=== PATIENT | male | born 1940 | race Caucasian/White ===

== ENCOUNTER 2016-04-09 08:13 | Outpatient (CLI) ==
[2012-10-28 08:55] VITALS: BMI 34.4
[2016-04-09 08:54] LABS: BASOPHILS # (AUTO) 0.1 K/uL (0-0.2); BASOPHILS % (AUTO) 0.7 % (0.0-3.0); EOSINOPHILS # (AUTO) 0.2 K/ul (0.0-0.7); EOSINOPHILS % (AUTO) 2.4 % (0.0-7.0); HEMATOCRIT 46.8 % (42.0-52.0); HEMOGLOBIN 15.1 g/dl (14.0-18.0); IMMATURE GRANULOCYTE % (AUTO) 0.1 % (0.0-5.0); LYMPHOCYTES # (AUTO) 1.8 K/uL (0.60-3.4); LYMPHOCYTES % (AUTO) 26.4 (10.0-50.0); MEAN CORPUSCULAR HEMOGLOBIN 31.6 pg (27.0-31.0); MEAN CORPUSCULAR HGB CONC 32.3 (31.8-35.4); MEAN CORPUSCULAR VOLUME 97.9 fl (80.0-94.0); MONOCYTES # (AUTO) 0.6 K/uL (0.4-2.0); MONOCYTES % (AUTO) 9.2 (0-10); NEUTROPHILS # (AUTO) 4.3 K/ul (2.0-6.9); NEUTROPHILS % (AUTO) 61.2; PLATELET COUNT 224 10^3/uL (140-440); RED BLOOD COUNT 4.78 10^6/ul (4.70-6.10); WHITE BLOOD COUNT 6.97 K/ul (4.2-10.2)
[2016-04-09 08:56] LABS: BILIRUBIN,URINE Negative (NEGATIVE); KETONES,URINE Negative (NEGATIVE); LEUKOCYTE ESTERASE ,URINE Negative (NEGATIVE); NITRITE,URINE Negative (NEGATIVE); PROTEIN,URINE Negative (NEGATIVE); URINE, BLOOD Negative (NEGATIVE)
[2016-04-09 08:59] LABS: ADD URINE MICROSCOPIC NO
[2016-04-09 09:12] LABS: ALBUMIN 3.5 g/dL (3.4-5.0); ALBUMIN/GLOBULIN RATIO 1.13; ANION GAP 10.9; BILIRUBIN,TOTAL 0.51 mg/dL (0.00-1.20); BUN/CREATININE RATIO 13.48; CALCIUM 9.4 mg/dL (8.2-10.2); CHOL/HDL RATIO 3.6 (4.5-6.4); CREATININE 0.89 mg/dL (0.60-1.10); POTASSIUM 4.9 mmol/L (3.5-5.1); TOTAL PROTEIN 6.6 g/dL (5.8-8.1)
== END 2016-04-09 08:14 | disposition home or self-care (01) ==
LOC: LAB 08:13
PROVIDERS: ATTEND General Practice
DX: E78.5 Hyperlipidemia, unspecified (principal); I10 Essential (primary) hypertension; E53.8 Deficiency of other specified B group vitamins; Z79.899 Other long term (current) drug therapy
CPT/HCPCS: 36415; 80053; 80061; 81001; 85025

== ENCOUNTER 2016-08-09 09:44 | Outpatient (CLI) | payer OTHER ==
[2012-10-28 08:55] VITALS: BMI 34.4
[2016-08-09 12:52] LABS: ADD URINE MICROSCOPIC NO; BILIRUBIN,URINE Negative (NEGATIVE); KETONES,URINE Negative (NEGATIVE); LEUKOCYTE ESTERASE ,URINE Negative (NEGATIVE); NITRITE,URINE Negative (NEGATIVE); PROTEIN,URINE Negative (NEGATIVE); URINE, BLOOD Negative (NEGATIVE)
[2016-08-09 12:57] LABS: BASOPHILS % (AUTO) 0.5 % (0.0-3.0); EOSINOPHILS # (AUTO) 0.1 K/ul (0.0-0.7); EOSINOPHILS % (AUTO) 2.1 % (0.0-7.0); HEMATOCRIT 48.7 % (42.0-52.0); HEMOGLOBIN 15.3 g/dl (14.0-18.0); IMMATURE GRANULOCYTE % (AUTO) 0.2 % (0.0-5.0); LYMPHOCYTES # (AUTO) 1.7 K/uL (0.60-3.4); LYMPHOCYTES % (AUTO) 28.9 (10.0-50.0); MEAN CORPUSCULAR HEMOGLOBIN 31.1 pg (27.0-31.0); MEAN CORPUSCULAR HGB CONC 31.4 (31.8-35.4); MONOCYTES # (AUTO) 0.7 K/uL (0.4-2.0); MONOCYTES % (AUTO) 11.9 (0-10); NEUTROPHILS # (AUTO) 3.3 K/ul (2.0-6.9); NEUTROPHILS % (AUTO) 56.4; PLATELET COUNT 178 10^3/uL (140-440); RED BLOOD COUNT 4.92 10^6/ul (4.70-6.10); WHITE BLOOD COUNT 5.78 K/ul (4.2-10.2)
[2016-08-09 13:41] LABS: ALBUMIN 3.7 g/dL (3.4-5.0); ALBUMIN/GLOBULIN RATIO 1.23; ANION GAP 10.6; BILIRUBIN,TOTAL 0.47 mg/dL (0.00-1.20); BUN/CREATININE RATIO 18.07; CALCIUM 9.2 mg/dL (8.2-10.2); CHOL/HDL RATIO 2.8 (4.5-6.4); CREATININE 0.83 mg/dL (0.60-1.10); POTASSIUM 4.6 mmol/L (3.5-5.1); TOTAL PROTEIN 6.7 g/dL (5.8-8.1)
== END 2016-08-09 09:45 | disposition home or self-care (01) ==
LOC: LAB 09:44
PROVIDERS: ATTEND General Practice
DX: E53.8 Deficiency of other specified B group vitamins (principal); I10 Essential (primary) hypertension; N40.0 Benign prostatic hyperplasia without lower urinary tract symptoms; E78.5 Hyperlipidemia, unspecified; Z79.899 Other long term (current) drug therapy
CPT/HCPCS: 36415; 80053; 80061; 81001; 85025

== ENCOUNTER 2016-09-21 07:42 | Emergency (ER) ==
[2016-09-21 07:48] VITALS: BP 165/92; TEMP 98.1; BMI 32.8
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
[2016-09-21] MEDS ORDERED: ZOFRAN 4 MG/2 ML IM STA (08:12)
[2016-09-21] MEDS ORDERED: MORPHINE 4 MG/ML SYRINGE IM STA (08:12)
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
--- NOTE | 2016-09-21 08:51 | DI ---
EXAM: Three views of the right ribs. History: Right rib trauma. Comparison: Chest radiograph 09/21/2016 Findings: Sternotomy wires. The right lung is free of consolidation. No right pleural effusion an d no right-sided pneumothorax. There are a few old healed right rib deformities with mild angulatio n. No definite acute displaced rib fractures identified. Impression: A few old right-sided rib fractures. No definite acute rib fractures identified.
== END 2016-09-21 09:00 | disposition home or self-care (01) ==
LOC: ED 07:42
DX: S20.211A Contusion of right front wall of thorax, initial encounter (principal); V11.9XXA Unspecified pedal cyclist injured in collision with other pedal cycle in traffic accident, initial encounter
CPT/HCPCS: 96372; 99283

== ENCOUNTER 2016-10-11 07:11 | Outpatient (CLI) ==
--- NOTE | 2016-10-11 08:52 | US ---
EXAM: Limited right upper quadrant ultrasound. HISTORY: Liver lesion seen on outside CT scan. COMPARISON: None available TECHNIQUE: Restrepo scale, color and Doppler ultrasound evaluation of the right upper quadrant. FINDINGS: Examination is severely limited due to body habitus. LIVER: The lesion described on CT is not visible on today's examination. There is heterogeneous ec hotexture noted. Portal venous flow is antegrade. GALLBLADDER: Gallbladder has been removed. COMMON BILE DUCT: Common bile duct measures 0.48 cm. PANCREAS: Not visualized due to bowel gas. KIDNEY: The right kidney is normal size with normal cortex thickness. There is a sub centimeter cys t identified in the mid pole region. There is no ascites or visualized adenopathy. IMPRESSION: 1. Limited examination as above with nonvisualization of reported liver lesion. 2. Prior cholecystectomy. 3. Heterogeneous echotexture of the liver.
== END 2016-10-11 07:12 | disposition home or self-care (01) ==
LOC: RAD 07:11
PROVIDERS: ATTEND General Practice
DX: K76.89 Other specified diseases of liver (principal)

== ENCOUNTER 2017-02-11 10:55 | Outpatient (CLI) ==
[2017-02-11 11:18] LABS: BASOPHILS % (AUTO) 0.5 % (0.0-3.0); EOSINOPHILS # (AUTO) 0.1 K/ul (0.0-0.7); EOSINOPHILS % (AUTO) 2.2 % (0.0-7.0); HEMATOCRIT 47.5 % (42.0-52.0); HEMOGLOBIN 15.2 g/dl (14.0-18.0); IMMATURE GRANULOCYTE % (AUTO) 0.3 % (0.0-5.0); LYMPHOCYTES # (AUTO) 1.6 K/uL (0.60-3.4); LYMPHOCYTES % (AUTO) 25.7 (10.0-50.0); MEAN CORPUSCULAR HEMOGLOBIN 31.6 pg (27.0-31.0); MEAN CORPUSCULAR VOLUME 98.8 fl (80.0-94.0); MONOCYTES # (AUTO) 0.7 K/uL (0.4-2.0); MONOCYTES % (AUTO) 10.4 (0-10); NEUTROPHILS # (AUTO) 3.9 K/ul (2.0-6.9); NEUTROPHILS % (AUTO) 60.9; PLATELET COUNT 230 10^3/uL (140-440); RED BLOOD COUNT 4.81 10^6/ul (4.70-6.10); WHITE BLOOD COUNT 6.34 K/ul (4.2-10.2)
[2017-02-11 11:29] LABS: ALBUMIN 3.3 g/dL (3.4-5.0); ANION GAP 12.8; BUN/CREATININE RATIO 15.47; CALCIUM 9.7 mg/dL (8.2-10.2); CREATININE 0.84 mg/dL (0.60-1.10); PHOSPHORUS 3.3 mg/dL (2.3-3.7); POTASSIUM 4.8 mmol/L (3.5-5.1)
--- NOTE | 2017-02-11 12:53 | CT ---
EXAM: CT chest with intravenous contrast 02/11/2017. Sagittal and coronal reformatted images obtain ed HISTORY: Hemoptysis COMPARISON: 07/20/2015 FINDINGS: The heart size appears at the upper limits of normal. Postoperative changes of the medias tinum. No pericardial effusion. The aorta shows no acute abnormality. Anatomic detail partially degraded by motion. Nodular consolidation is present within the posterior a spect of the left lower lobe. This may represent bronchopneumonia. Right basilar infiltrate described on the prior study appears to have resolved. Limited views of the upper abdomen shows surgical changes of cholecystectomy. IMPRESSION: 1. Nodular consolidation within the left lower lobe which most likely represents pneumonia. Follow- up would be of benefit following appropriate medical management to document resolution.
== END 2017-02-11 10:56 | disposition home or self-care (01) ==
LOC: RAD 10:55
PROVIDERS: ATTEND General Practice
DX: R04.2 Hemoptysis (principal)
CPT/HCPCS: 36415; 80069; 85025

== ENCOUNTER 2017-03-06 10:44 | Outpatient (CLI) ==
--- NOTE | 2017-03-06 11:12 | DI ---
EXAM: Chest two view, frontal and lateral views. HISTORY: Pneumonia. COMPARISON: 02/11/2017. FINDINGS: Post CABG changes noted The heart size is normal. Atherosclerotic calcifications are pres ent. There is no pulmonary vascular congestion. The lungs are clear. No pleural effusion or pneumo thorax is seen. No acute osseous abnormality identified. Old right rib fractures seen. Clips noted in the upper abdomen. Since prior study, left lower lobe consolidation appears to have resolved. IMPRESSION: No acute cardiopulmonary process.
== END 2017-03-06 10:45 | disposition home or self-care (01) ==
LOC: RAD 10:44
PROVIDERS: ATTEND General Practice
DX: J18.9 Pneumonia, unspecified organism (principal)

== ENCOUNTER 2017-03-27 12:46 | Outpatient (CLI) | END 2017-03-27 12:47 | disposition home or self-care (01) | LOC: LAB 12:46 | PROVIDERS: ATTEND General Practice | DX: E78.5 Hyperlipidemia, unspecified (principal); I10 Essential (primary) hypertension; Z79.899 Other long term (current) drug therapy | CPT/HCPCS: 36415; 80061; 81001 ==

== ENCOUNTER 2017-07-24 10:12 | Outpatient (CLI) | payer OTHER | END 2017-07-24 10:13 | disposition home or self-care (01) | LOC: FCC-LAB 10:12 | PROVIDERS: ATTEND General Practice | DX: I10 Essential (primary) hypertension (principal); N40.0 Benign prostatic hyperplasia without lower urinary tract symptoms; E78.5 Hyperlipidemia, unspecified; E53.8 Deficiency of other specified B group vitamins; Z79.899 Other long term (current) drug therapy | CPT/HCPCS: 36415; 80053; 80061; 81001; 85025 ==

== ENCOUNTER 2017-11-13 12:54 | Outpatient (CLI) | payer OTHER | END 2017-11-13 12:55 | disposition home or self-care (01) | LOC: FCC-LAB 12:54 | PROVIDERS: ATTEND General Practice | DX: E78.5 Hyperlipidemia, unspecified (principal); E53.8 Deficiency of other specified B group vitamins; Z79.899 Other long term (current) drug therapy | CPT/HCPCS: 36415; 80053; 80061; 81001; 85025 ==

== ENCOUNTER 2018-03-11 08:03 | Outpatient (CLI) | payer OTHER | END 2018-03-11 08:04 | disposition home or self-care (01) | LOC: RHC-LAB 08:03 | PROVIDERS: ATTEND General Practice | DX: E78.5 Hyperlipidemia, unspecified (principal); I10 Essential (primary) hypertension; E53.8 Deficiency of other specified B group vitamins; N40.0 Benign prostatic hyperplasia without lower urinary tract symptoms; Z79.899 Other long term (current) drug therapy | CPT/HCPCS: 36415; 80053; 80061; 81001; 85025 ==

== ENCOUNTER 2018-07-20 08:10 | Outpatient (CLI) | END 2018-07-20 08:11 | disposition home or self-care (01) | LOC: LAB 08:10 | PROVIDERS: ATTEND General Practice | DX: E78.5 Hyperlipidemia, unspecified (principal); I10 Essential (primary) hypertension; Z79.899 Other long term (current) drug therapy | CPT/HCPCS: 36415; 80053; 81001; 84443; 85025 ==

== ENCOUNTER 2018-10-30 08:21 | Outpatient (CLI) | payer OTHER | END 2018-10-30 08:22 | disposition home or self-care (01) | LOC: RHC-LAB 08:21 | PROVIDERS: ATTEND General Practice | DX: E78.5 Hyperlipidemia, unspecified (principal); I10 Essential (primary) hypertension; E53.8 Deficiency of other specified B group vitamins; Z79.899 Other long term (current) drug therapy | CPT/HCPCS: 36415; 80053; 80061; 81001; 84443; 85025; 87086 ==